=== PATIENT | female | born 1970 | race Caucasian/White ===

== ENCOUNTER → 2019-02-04 | Outpatient (CLI) | payer MEDICARE, MEDICAID, SELFPAY ==
[2019-02-04 12:50] VITALS: BMI 27.3
--- NOTE | 2019-02-04 12:58 | RAD_ITS ---
STUDY: X-RAY - LEFT RADIUS AND ULNA REASON FOR EXAM: Injury a couple months ago. TECHNIQUE: 2 view(s) of the forearm. COMPARISON: None. FINDINGS: There is no demonstrated soft tissue swelling. Normal visualized radius. There is a nondisplaced fracture of the ulnar diaphysis without solid osseous bridging. RAD/Forearm 2 Views IMPRESSION: Fracture of the ulnar diaphysis without solid osseous bridging. Electronically Signed: Alexx Caruso MD at 15:22 EDT Tel , Service support ,
== END | disposition home or self-care (01) ==
LOC: HPRAD 12:57
PROVIDERS: Family Provider Family Medicine; PCP Family Medicine; Referring Provider Orthopaedic Surgery; Visit Provider Orthopaedic Surgery
DX: S52.209A Unspecified fracture of shaft of unspecified ulna, initial encounter for closed fracture (principal)
CPT/HCPCS: 73090

== ENCOUNTER 2020-03-12 17:38 | Emergency (ER) | payer MEDICARE, MEDICAID, SELFPAY ==
[2019-02-04 12:50] VITALS: BMI 27.3
[2020-03-12 17:39] VITALS: BP 103/56; PULSE 130; RESP 20; TEMP 36.1; O2SAT 98; BMI 22.8
--- NOTE | 2020-03-12 17:51 | EKG12_ITS ---
Test Reason : MEDICAL CLEARANCE Blood Pressure : / mmHG Vent. Rate : 106 BPM Atrial Rate : 106 BPM P-R Int : 126 ms QRS Dur : 070 ms QT Int : 322 ms P-R-T Axes : 074 044 059 degrees QTc Int : 427 ms Sinus tachycardia Otherwise normal ECG Confirmed by MITCHEL BATES, YULI ([id number]), fan mail editor ZOYA DURAN ([id number]) on 03/14/2020 9:20:27 AM Referred By: ARMANDO Confirmed By:YULI GRULLON MD
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
[2020-03-12 18:28] LABS: Absolute Lymphocyte Count 3.43 X10^3/uL (0.83-4.51); Absolute Neutrophil Count 6.4 X10^3/uL (2.0-7.7); Basophil# 0.07 X10^3/uL; Basophil% 0.7 % (0-1); Eosinophil# 0.04 X10^3/uL; Eosinophils% 0.4 % (0-5); Hematocrit 43.9 % (37-47); Hemoglobin 14.2 g/dL (12.0-15.0); Lymphocyte # 3.43 X10^3/ul (4.0); Lymphocyte % 32.5 % (19-41); Mean Corp Hgb Conc 32.3 g/dL (32-36); Mean Corpuscular Hgb 28.8 pg (27.0-32.0); Monocyte# 0.61 X10^3/uL; Monocyte% 5.8 % (0-10); NRBC Flagged by Analyzer 0 % (0-5); Neutrophil # 6.39 X10^3/uL (2.7-7.7); Neutrophil % 60.3 % (47-70); Platelet Count 468 K/mm3 (150-450); RBC Distribution Width CV 14.6 % (11.6-14.6); RBC Distribution Width SD 47.5 fl (35.1-43.9); Red Blood Count 4.93 M/mm3 (4.2-5.4); White Blood Count 10.6 K/mm3 (4.4-11.0)
[2020-03-12 18:32] LABS: Anion Gap 9 (5-15); BUN 9 mg/dL (7-18); BUN/Creat Ratio 7.7 RATIO (10-20); Calcium,Total 9.8 mg/dL (8.5-10.1); Chloride 104 mmol/L (98-107); Creatinine, Serum 1.17 mg/dL (0.55-1.02); EST Glomerular Filtration Rate 52 mL/min (>60); Est Glom Filt Rate - Afr Amer 63 mL/min (>60); Estimated Creatinine Clearance 57.38 ml/min; Glucose 111 mg/dL (74-106); Potassium 3.2 mmol/L (3.5-5.1); Sodium Level 137 mmol/L (136-145)
[2020-03-12 18:39] LABS: Internal QC Validated? YES +Cl - CLEAR BKGD; Pregnancy, Serum, hCG Quali. NEGATIVE Negative
[2020-03-12] MEDS: LORazepam 1 MG Tablet PO ×2 (18:40→22:30)
--- NOTE | 2020-03-12 18:41 | ED.RN ---
pt attempted to give ua x 2. no success. water given
[2020-03-12 19:12] LABS: Alcohol, Blood (Medical)-Serum < 3.0 mg/dL
[2020-03-12 19:23] VITALS: RESP 17
[2020-03-12 20:04] LABS: Amphetamine Urine VISTA NEGATIVE (<1000 ng/mL); Barbiturate Urine VISTA NEGATIVE (< 200 ng/mL); Benzodiazepine Urine VISTA NEGATIVE (< 200 ng/mL); Cocaine Urine VISTA NEGATIVE (< 300 ng/mL); Ecstacy Urine VISTA NEGATIVE (< 500 ng/mL); Methadone Urine VISTA NEGATIVE (< 300 ng/mL); PCP Urine VISTA NEGATIVE (< 25 ng/mL); THC Urine VISTA NEGATIVE (< 50 ng/mL); Vista UDS pH Range 6
--- NOTE | 2020-03-12 20:22 | ED.RN ---
[facility]ISIS CALLED AND MADE AWARE OF PATIENT
[2020-03-12 20:35] VITALS: RESP 18
[2020-03-12 21:20] VITALS: BP 110/60; PULSE 98; RESP 18; O2SAT 96
[2020-03-12] MEDS: Ibuprofen 600 MG Tablet PO (22:30)
[2020-03-12] MEDS: QUEtiapine 100 MG Tablet 300 MG PO (22:30)
[2020-03-12 22:32] VITALS: RESP 18
[2020-03-12 23:39] VITALS: RESP 16
[2020-03-13] MEDS: DiphenhydrAMINE 25 MG Capsule 50 MG PO (00:49)
[2020-03-13 01:15] VITALS: BP 136/84; PULSE 100; RESP 18; O2SAT 96
[2020-03-13 02:16] VITALS: RESP 18
[2020-03-13 04:15] VITALS: RESP 14
[2020-03-13 06:03] VITALS: BP 126/80; PULSE 72; RESP 16; O2SAT 98
[2020-03-13] MEDS: Sertraline 100 MG Tablet PO (08:31)
[2020-03-13] MEDS: clonazePAM 0.5 MG Tablet PO (08:31)
[2020-03-13] MEDS: Ibuprofen 600 MG Tablet PO (08:31)
[2020-03-13] MEDS: QUEtiapine 100 MG Tablet 150 MG PO (08:32)
[2020-03-13 11:53] VITALS: BP 126/80; PULSE 72; RESP 16; O2SAT 99
== END 2020-03-13 10:55 ==
LOC: ED 18:35
PROVIDERS: Emergency Provider Emergency Medicine; PCP Family Medicine
DX: R45.851 Suicidal ideations (principal); F17.200 Nicotine dependence, unspecified, uncomplicated; F32.9 Major depressive disorder, single episode, unspecified; F41.9 Anxiety disorder, unspecified; Z91.5 Personal history of self-harm; Z90.710 Acquired absence of both cervix and uterus; Z79.899 Other long term (current) drug therapy
CPT/HCPCS: 80048; 80307; 80320; 84703; 85025; 87426; 93005; 99285; G0480

== ENCOUNTER 2020-07-01 20:45 | Emergency (ER) | payer MEDICARE, MEDICAID, SELFPAY ==
--- NOTE | 2020-07-01 00:30 | RAD_ITS ---
STUDY: X-RAY CHEST REASON FOR EXAM: Female, 49 years old. Respiratory arrest, rales left base TECHNIQUE: Single AP portable view of the chest. COMPARISON: None. FINDINGS: There is some asymmetry of the lung rutherford due to S-shaped thoracic scoliosis. There is mild atelectasis in the lower lung rutherford bilaterally, left greater than right.. There is no demonstrated acute pulmonary infiltrate.. There is no demonstrated pleural abnormality. Normal size heart. Normal mediastinum and merritt. Normal visualized aortic arch and descending thoracic aorta. There are no demonstrated acute fractures or destructive bone lesions. There is no demonstrated abnormality of the visualized soft tissue structures of the upper abdomen. RAD/Chest 1 View (Portable) IMPRESSION: There are no visualized acute osseous abnormalities. Electronically Signed: Miller Nicholson MD at 2:11 EDT , Service support ,
[2020-07-01 20:47] VITALS: BP 159/119; PULSE 113; RESP 22; TEMP 36.3; O2SAT 95; BMI 25.6
--- NOTE | 2020-07-01 21:01 | EKG12_ITS ---
Test Reason : OVERDOSE Blood Pressure : / mmHG Vent. Rate : 101 BPM Atrial Rate : 101 BPM P-R Int : 128 ms QRS Dur : 078 ms QT Int : 356 ms P-R-T Axes : 070 031 044 degrees QTc Int : 461 ms Sinus tachycardia Otherwise normal ECG Confirmed by MITCHEL BATES, YULI ([id number]), business editor ZOYA DURAN ([id number]) on 07/04/2020 8:58:54 AM Referred By: KAM Confirmed By:YULI GRULLON MD
[2020-07-01] MEDS: Midazolam 2 MG/2 ML Syringe IV (21:37)
[2020-07-01 21:49] VITALS: BP 120/79; PULSE 109; RESP 22; O2SAT 95
--- NOTE | 2020-07-01 21:51 | ED.DCSUM_ITS ---
History of Present Illness Chief Complaint: Overdose Detail of Chief Complaint: Overdose and attempt to commit suicide Informant: Patient, - - Law enforcement Onset: Today - Today took unknown amount of heroin and attempt to kill herself. Patient had a respiratory arrest and required 2 doses of Narcan. Context: Sudden Onset Timing: Intermittent Quality: Respiratory arrest due to opiate overdose Location: Residence Current Severity: Patient is depressed, reports son 2 months ago and feels miserable and Worsened by: Difficult family situation and recent of son Relieved by: Nothing Associated Symptoms: Respiratory arrest due to heroin overdose, intentional Narrative: Patient is a middle-age woman who presents because she is depressed, feels miserable and no longer wants to live. She denied taking heroin. The police district switchboard operator informed me that friend called because she had respiratory arrest. He found the heroin she took. She still denies using heroin. 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 Patient is presently crying. She states she is depressed. She feels miserable and no longer wants to feel the pain in agony. Prior similar symptoms: Yes Recent Illness/Hospitalization: Yes - Past Medical History (1) Anxiety Status: Chronic (2) Chronic low back pain Status: Chronic (3) Depression Status: Chronic (4) Hypertension Status: Chronic (5) Tobacco abuse Status: Chronic Past Medical History - Allergies and Home Meds Allergies/Adverse Reactions: Allergies venom-honey bee [bee venom (honey bee)] Allergy (Verified 07/01/20 20:55) Unknown Primary Care Physician: Darian Guzman MD [Primary Care Provider] - Prior records reviewed: Yes Surgical History: hysterectomy, - - Breast implant removal, Lives: Alone Smoking Status: Current every day smoker Alcohol: None - Unknown Drugs: Heroin - Family History Maternal Family History: Reports: Hypertension Paternal Family History: Reports: Cancer Sibling Family History: Reports: Cancer Review of Systems ROS: Unable to Obtain - Evident due to depression, agitation, uncooperative and not forthcoming Cardiovascular: Denies: Chest pain Respiratory: Denies: Dyspnea Gastrointestinal: Denies: Vomiting, Diarrhea Genitourinary: Denies: Dysuria, Hematuria, Frequency Musculoskeletal: Reports: Back pain - Chronic back pain. Denies: Myalgias, Arthralgias, Swelling, Extremity Pain Neurological: Reports: Weakness Psych: Reports: Depression, Suicidal thoughts Allergy: Denies: Uticaria, Swelling of the mouth Physical Exam Vital Signs/Narrative: Vital Signs Temp Pulse Resp BP Pulse Ox 07/01/20 21:49 109 H 22 H 120/79 95 07/01/20 20:47 97.4 F L 113 H 22 H 159/119 H 95 Inital Vital Signs reviewed: Yes General: Well nourished, Well developed, Acute Distress Head: Normocephalic, Atraumatic Eyes: Perrl, EOMI. Negative for: Pale conjunctiva, Scleral icterus ENT: Moist mucous membranes, No rhinorrhea, TM's clear Neck: Supple, Nontender, No lymphadenopathy, No JVD, - - Trachea is midline. Cardiovascular: Regular rhythm, No murmurs, Normal S1, Normal S2, Tachycardia Respiratory: No distress Abdomen: Soft, Nontender, Nondistended, Normal bowel sounds, No masses Rectal: Deferred Back: Nontender, Normal Inspection Extremities: Nontender, No edema Skin: Normal color, No rash, No Trauma. Negative for: Cyanosis, Diaphoresis, Jaundice Neurological: Alert, Oriented x3, Cranial nerves II-XII grossly intact, Normal Strength, Normal Sensation, Normal DTR Psychological: Depressed, Tearful, - - Reports she is in agony and does not wish to live. Diagnostic/Tx/Re-eval 07/01/20 21:01 Chest 1 View (Portable) [RAD] Stat - EKG Initial EKG Interpretation: Sinus Tachycardia - Tachycardia with a ventricular rate of 101. TN interval 220 ms. Screw duration 78 ms. QT duration 3 to 56 ms. Callahan is normal. - Medical Decision Making Patient was placed on a monitor will observe since she had a respiratory arrest due to heroin overdose and attempt to commit suicide. Appropriate screening labs were obtained to rule out metabolic abnormality or other causes. environmental services worker was made aware of patient. Patient was pink slipped by law enforcement. Patient was attempting to leave. She was uncooperative. Patient was not redirectable. She did not listen to me, nurse or law enforcement. With minimal physical effort she was placed back in bed. She became combative at this point. She was placed in restraints and medicated with Versed to allow the nurse to draw blood work and perform appropriate test for medical clearance. Patient felt it was inappropriate for her to be placed in restraints. She then made comment I am not going to say anything more. Laboratory results are pending. Covid test is pending. Case was turned over to the evening physician to review labs. If there is no abnormality crisis to see for inpatient psychiatric care. Labs to be checked by night physician since results are still pending. - Critical Care Time Critical care time (excluding procedures): 30-74 minutes - , Discussion with law enforcement and licensed optical dispenser on-call for counseling center to facilitate placement at psychiatric facility.Critical care time 31 minutes which included obtaining history, physical exam, direct patient ED Disposition - Plan for ED Patient: Disposition: Psychiatric Hospital or Unit Diagnosis: Depression with suicidal ideation, Suicide attempt by adequate means, Respiratory arrest, Intentional heroin overdose Referrals: Darian Guzman MD [Primary Care Provider] -
--- NOTE | 2020-07-01 22:22 | ED.RN ---
[facility]ISIS CALLED AND ASKED IF WE HAD ANY LABS ON THE PATIENT YET, I CALLED BACK AND LET THEM KNOW PATIENT WOULD NOT GIVE ANY LABS.
[2020-07-01 23:19] VITALS: RESP 18
[2020-07-01 23:38] LABS: Anion Gap 9 (5-15); BUN 13 mg/dL (7-18); BUN/Creat Ratio 16.8 RATIO (10-20); Calcium,Total 8.5 mg/dL (8.5-10.1); Chloride 114 mmol/L (98-107); Creatinine, Serum 0.77 mg/dL (0.55-1.02); EST Glomerular Filtration Rate 83 mL/min (>60); Est Glom Filt Rate - Afr Amer 101 mL/min (>60); Estimated Creatinine Clearance 80.92 ml/min; Glucose 87 mg/dL (74-106); Potassium 3.8 mmol/L (3.5-5.1); Sodium Level 145 mmol/L (136-145)
[2020-07-01 23:41] LABS: Absolute Lymphocyte Count 2.79 X10^3/uL (0.83-4.51); Absolute Neutrophil Count 10.3 X10^3/uL (2.0-7.7); Basophil# 0.07 X10^3/uL; Basophil% 0.5 % (0-1); Eosinophil# 0.08 X10^3/uL; Eosinophils% 0.6 % (0-5); Hematocrit 41.8 % (37-47); Hemoglobin 13.3 g/dL (12.0-15.0); Lymphocyte # 2.79 X10^3/ul (4.0); Lymphocyte % 20.1 % (19-41); Mean Corp Hgb Conc 31.8 g/dL (32-36); Mean Corpuscular Hgb 28.3 pg (27.0-32.0); Mean Corpuscular Volume 88.9 fL (81-99); Mean Platelet Vol. 9.3 fl (6.2-12.0); Monocyte# 0.47 X10^3/uL; Monocyte% 3.4 % (0-10); NRBC Flagged by Analyzer 0 % (0-5); Neutrophil % 74.4 % (47-70); Platelet Count 380 K/mm3 (150-450); RBC Distribution Width CV 13.4 % (11.6-14.6); RBC Distribution Width SD 44.5 fl (35.1-43.9); White Blood Count 13.9 K/mm3 (4.4-11.0)
[2020-07-02] VITALS (10 sets, daily range): BP systolic 106–118; BP diastolic 64–89; PULSE 69–78; RESP 16–20; O2SAT 98–99
--- NOTE | 2020-07-02 00:26 | ED.RN ---
PT CONTINUES TO HAVE VERBAL OUTBURSTS AGAINST STAFF. PTS POC HAVE BEEN EXPLAINED MULTIPLE TIMES. HOWEVER, PT STILL STATES THAT SHE IS BEING HELD AGAINST HER WILL. PT HAS THREATENED THIS HOSPITAL AND ITS STAFF SAYING WHEN I GET OUT OF HERE I AM GOING TO FUCK YOU UP. PT CONTINUES TO TALK ABOUT EVENTS WITH HER SON AND HIS , EVENTS THAT THIS STAFF HAS NO CONTROL OVER. PT HAS BEEN ASKED MULTIPLE TIMES TO PROVIDE URINE SAMPLE, PT REFUSES. PT ALSO REFUSES TO HAVE A CHEST X-RAY. PT STATES SHE NORMALLY GOES TO BED AT 2200 AND DOESN'T UNDERSTAND WHY SHE IS STILL AWAKE. PT HAS NOT STOPPED TALKING TO SITTER SINCE HER ARRIVAL. PT HAS BEEN GIVEN WATER AND COKE AT HER REQUEST BUT STILL STATES SHE CANNOT PROVIDE URINE SAMPLE.
--- NOTE | 2020-07-02 01:07 | RAD_ITS ---
STUDY: X-RAY - LEFT RADIUS AND ULNA REASON FOR EXAM: Female, 49 years old. Pain TECHNIQUE: 2 view(s) of the forearm. COMPARISON: 02/04/2019. FINDINGS: There is no demonstrated soft tissue swelling. Normal visualized radius. There is an old fracture of the mid ulnar shaft. There is persistent large bone defect in the lateral aspect fracture site, however, there does appear to be bridging bone formation medially, consistent with interval healing. RAD/Forearm 2 Views IMPRESSION: Old healed fracture of the mid ulnar shaft, with a residual bone defect. No demonstrated acute fracture, dislocation, or destructive osseous lesion. Electronically Signed: Miller Nicholson MD at 2:46 EDT , Service support ,
[2020-07-02] MEDS: Ibuprofen 600 MG Tablet PO (01:21)
[2020-07-02] MEDS: QUEtiapine 100 MG Tablet 300 MG PO (01:21)
[2020-07-02] MEDS: clonazePAM 1 MG Tablet PO ×2 (01:21→06:21)
[2020-07-02 01:50] LABS: Amphetamine Urine VISTA NEGATIVE (<1000 ng/mL); Barbiturate Urine VISTA NEGATIVE (< 200 ng/mL); Benzodiazepine Urine VISTA POSITIVE (< 200 ng/mL); Cocaine Urine VISTA NEGATIVE (< 300 ng/mL); Ecstacy Urine VISTA NEGATIVE (< 500 ng/mL); Methadone Urine VISTA NEGATIVE (< 300 ng/mL); PCP Urine VISTA NEGATIVE (< 25 ng/mL); THC Urine VISTA NEGATIVE (< 50 ng/mL); Vista UDS pH Range 6
--- NOTE | 2020-07-02 02:31 | ED.RN ---
PT PRESENTED WITHOUT AN ARM BRACE ON LEFT ARM BUT STATES IT'S BEEN BROKEN FOR TWO YEARS.
--- NOTE | 2020-07-02 05:37 | ED.RN ---
[facility] REQUESTED TOX SCREEN WHICH WAS FAXED TO [phone].
--- NOTE | 2020-07-02 08:08 | ED.RN ---
ordered pt a meal
--- NOTE | 2020-07-02 10:19 | ED.RN ---
reports called to shanon melendez at [facility].
== END 2020-07-02 11:21 ==
PROVIDERS: Emergency Provider Emergency Medicine; PCP Family Medicine
DX: F32.9 Major depressive disorder, single episode, unspecified (principal); R45.851 Suicidal ideations; T40.1X2A Poisoning by heroin, intentional self-harm, initial encounter; R09.2 Respiratory arrest; F17.200 Nicotine dependence, unspecified, uncomplicated; Z90.710 Acquired absence of both cervix and uterus
CPT/HCPCS: 71045; 73090; 80048; 80307; 82077; 85025; 87426; 93005; 96374; 99285; A4216

== ENCOUNTER 2020-08-23 14:18 | Emergency (ER) | payer MEDICARE, MEDICAID, SELFPAY ==
[2020-08-23 14:19] VITALS: BP 123/89; PULSE 110; RESP 15; TEMP 36.3; O2SAT 100; BMI 23.6
--- NOTE | 2020-08-23 14:38 | EDS_ITS ---
HPI History of Present Illness HPI Narrative: Patient presents with injury to her right ring finger that occurred 2 weeks ago. Patient states she feels it may be starting to get infected. Patient states she went to an urgent care today and they referred her to the emergency department because they said it looks like it goes into the bone and would need to be debrided. Patient denies any fevers or chills. Patient admits to some drainage from the wound. Patient states her pain is worse with certain movements. Patient states the pain is sharp. Patient denies any paresthesias or weakness. Patient states she also cut her right middle finger and right small finger but they are healing without any complications. Patient states she has been using bacitracin ointment with minimal relief. Chief Complaint: Laceration Informant: patient Occured/Mechanism Mechanism/Context: Yes other see comment below Comment: Patient cut her finger with a knife. Onset/Context/Timing Onset: Weeks (2) Context: Gradual Onset Timing: Continuous Quality of Pain: Sharp Location: Dorsal aspect of the PIP joint of the right ring finger Worsened by: Movement Relieved by: Rest Associated Symptoms Associated Symptoms: Negative for Parasthesia and Weakness PFSH PFS Medical History Alcohol abuse Back pain Depression Substance abuse Suicidal ideation Home Medications quetiapine [Seroquel] 300 mg PO DAILY 10/27/15 [History Last Taken Unknown] clonazepam 1 mg PO BREAKFAST 03/12/20 [History Last Taken Unknown] sertraline 150 mg PO QHS 03/12/20 [History Last Taken Unknown] aripiprazole 10 mg PO QHS 07/02/20 [History Last Taken Unknown] clonazepam 2 mg PO QHS 07/02/20 [History Last Taken Unknown] mirtazapine 15 mg PO QHS 07/02/20 [History Last Taken Unknown] cephalexin 500 mg PO Q6 #40 capsule 08/23/20 [Rx Last Taken Unknown] hydroxyzine pamoate 50 mg PO BID PRN PRN 08/23/20 [History Last Taken Unknown] Allergy/AdvReac Type Severity Reaction Status Date / Time venom-honey bee Allergy Unknown Verified 08/23/20 14:18 [bee venom (honey bee)] Social History Smoking Status: Current every day smoker ROS ROS ED Constitutional Constitutional ED: Denies chills or fever(s) Eyes Eyes: Denies blurry vision or change in vision ENT ENT ED: Denies rhinorrhea or sore throat Cardiovascular Cardiovascular: Denies chest pain or palpitations Respiratory/Chest Respiratory/Chest: Denies cough or dyspnea Gastrointestinal Gastrointestinal: Reports nausea and vomiting Genitourinary Genitourinary ED: Denies dysuria or hematuria Musculoskeletal Musculoskeletal: Reports back pain and neck pain Integumentary Denies abscess or rash Neurologic Neurologic: Denies paresthesias or weakness Allergic/Immunologic Allergic/Immunologic ED: Denies mouth swelling or urticaria EXAM Physical Exam Const Vital Signs: 08/23/20 14:19 Temperature 97.4 F L Temperature Source Oral Pulse Rate 110 H Respiratory Rate 15 Blood Pressure 123/89 H Blood Pressure Mean 100 Pulse Ox 100 Oxygen Delivery Method Room Air Positive well nourished and well developed General Appearance ED: well developed HEENT Reports moist mucous membranes Extremity Extremity Narrative: There is an open wound over the dorsal aspect of the PIP joint of the right middle finger. There is some mild purulent drainage noted. There is some surrounding healing erythema. There is minimal tenderness. There is no bony crepitance, step-off, or deformity. Range of motion was limited and flexion of the PIP joint secondary to pain. Sensation was intact to light touch in all digits. Capillary refill was less than 2 seconds in all digits. There is no tenderness over the palmar aspect of the right ring finger. Neuro oriented x3, CN's II-XII intact bilaterally, no focal motor deficits and no sensory deficits noted Sensorium / Orientation: alert Psych mental status grossly normal MDM MDM MDM Narrative Medical decision making narrative: Patient was given a dose of Ancef here. CBC, sed rate, and CRP were obtained and were essentially within normal limits. X- rays of the right ring finger were obtained. There are 3 views. On my interpretation, there is no acute abnormality noted. There is no evidence of osteomyelitis. There is no fracture. Radiologist also interpreted the x-rays and agrees. Patient was given a prescription for Keflex. Patient was given a referral to the wound center as well as orthopedics for follow-up care. Xeroform gauze dressing was applied. Aluminum foam splint was applied. Patient understood and was agreeable with the plan. All questions were answered. Lab Data Attestation: I reviewed the patient's lab results. Discharge Plan Triage Chief Complaint: Laceration ED Provider: Ry Mccloud Dx/Rx/DC Orders Clinical Impression: Open wound of finger, infected Instructions: ED Wound Check (Infection) Prescriptions: New cephalexin [cephalexin] 500 MG capsule 500 mg PO Q6 Qty: 40 RF: 0 No Action quetiapine [Seroquel] 400 MG tablet 300 mg PO DAILY RF: 0 clonazepam 1 MG tablet 1 mg PO BREAKFAST RF: 0 sertraline 50 MG tablet 150 mg PO QHS RF: 0 clonazepam 2 MG tablet 2 mg PO QHS RF: 0 mirtazapine 15 MG tablet 15 mg PO QHS RF: 0 aripiprazole 10 MG tablet 10 mg PO QHS RF: 0 hydroxyzine pamoate 50 mg capsule 50 mg PO BID PRN PRN (Reason: Anxiety) RF: 0 Referrals: Douglas Vigil [Other] Qasim Garner DO [STAFF PHYSICIAN] - 5-7 Days Clinic,Wound [None] - 3-5 Days Disposition Disposition: Home, self care
[2020-08-23 15:24] LABS: Absolute Lymphocyte Count 3.08 X10^3/uL (0.83-4.51); Absolute Neutrophil Count 4.5 X10^3/uL (2.0-7.7); Basophil# 0.08 X10^3/uL; Eosinophil# 0.07 X10^3/uL; Eosinophils% 0.8 % (0-5); Hematocrit 42.9 % (37-47); Hemoglobin 13.5 g/dL (12.0-15.0); Lymphocyte # 3.08 X10^3/ul (0.83-4.51); Lymphocyte % 36.9 % (19-41); Mean Corp Hgb Conc 31.5 g/dL (32-36); Mean Corpuscular Hgb 27.5 pg (27.0-32.0); Mean Corpuscular Volume 87.4 fL (81-99); Mean Platelet Vol. 8.7 fl (6.2-12.0); Monocyte# 0.55 X10^3/uL; Monocyte% 6.6 % (0-10); NRBC Flagged by Analyzer 0 % (0-5); Neutrophil # 4.54 X10^3/uL (2.7-7.7); Neutrophil % 54.5 % (47-70); Platelet Count 581 K/mm3 (150-450); RBC Distribution Width CV 14.5 % (11.6-14.6); RBC Distribution Width SD 46.4 fl (35.1-43.9); Red Blood Count 4.91 M/mm3 (4.2-5.4); White Blood Count 8.3 K/mm3 (4.4-11.0)
[2020-08-23] MEDS: Cefazolin 1 GM/50 ML BAG IV (15:28)
[2020-08-23 15:29] LABS: Erythrocyte Sedimentation Rate 25 mm/hr (0-30)
[2020-08-23] MEDS: Ibuprofen 600 MG Tablet PO (15:41)
[2020-08-23] MEDS: Diphth,Pertuss(Acell),Tet Vac 0.5 ML Vial IM (15:49)
--- NOTE | 2020-08-23 15:55 | RAD_ITS ---
STUDY: X-RAY - RIGHT HAND, ATTENTION 4 FINGER REASON FOR EXAM: Female, 49 years old. Injury/Pain TECHNIQUE: 3 view(s) of the finger were obtained. COMPARISON: None. FINDINGS: Normal metacarpal head. Normal metacarpophalangeal joint. Normal proximal phalanx. Normal middle phalanx. Normal distal phalanx. Normal proximal interphalangeal joint. Normal distal interphalangeal joint. There is no demonstrated fracture. RAD/Finger(s) Min 2 Views IMPRESSION: No definite acute or significant abnormality seen. Electronically Signed: Michel Abreu MD at 16:13 EDT , Service support ,
[2020-08-23 16:31] LABS: M R Staph aureus DNA By PCR Negative (Negative); Probe Check PASS; Staph aureus DNA By PCR POSITIVE (Negative)
== END 2020-08-23 16:50 | disposition home or self-care (01) ==
PROVIDERS: Emergency Provider Emergency Medicine
DX: S61.212A Laceration without foreign body of right middle finger without damage to nail, initial encounter (principal); L08.9 Local infection of the skin and subcutaneous tissue, unspecified; W26.0XXA Contact with knife, initial encounter; Y93.9 Activity, unspecified; Y92.9 Unspecified place or not applicable; F32.9 Major depressive disorder, single episode, unspecified; Z79.899 Other long term (current) drug therapy; F17.200 Nicotine dependence, unspecified, uncomplicated
CPT/HCPCS: 73140; 85025; 85652; 86140; 87070; 87077; 87186; 87205; 87640; 90715; 96365; 96372; 99284; A4216

== ENCOUNTER 2020-09-06 09:04 | Outpatient (RCR) | payer MEDICARE, MEDICAID, SELFPAY ==
[2020-09-06 09:20] VITALS: BP 121/70; PULSE 124; RESP 18; TEMP 37.4; BMI 21.7
--- NOTE | 2020-09-06 09:33 | WC ---
DIFFICULT TO COMPLETE RISK ASSESSMENTS, PT VERY VERBAL, HARD TO REDIRECT.
--- NOTE | 2020-09-06 10:35 | PCM.WC.HP ---
History of Present Illness Date of Service: 09/06/20 Chief Complaint: Follow-up right ring finger History of Wound: 49-year-old white female with psych history on many psych meds, fell out of her shower approximately 3 weeks ago and caught her right ring finger on the shower frame. She developed an avulsion laceration to the top PIP joint of the right ring finger. Patient has been using pressurized saline and Neosporin to the wound. Has gone to the emergency room where they have done cultures and they put her on cephalexin that she has finished. Progress of Wound: Today the wound is open erythematous around the finger swollen finger joint able to flex finger well and has finished her antibiotic therapy. The culture shows staph that sensitive to doxycycline that she will be restarted on. The skin surrounding the wound has peeled back and was debrided she has some slough in the center that was scored and some new skin developing. We will start her on Santyl daily changes and follow her up in a week and start her on a new antibiotic. [facility] Medical History Alcohol abuse Back pain Depression Substance abuse Suicidal ideation Home Medications quetiapine [Seroquel] 300 mg PO DAILY 10/27/15 [History Last Taken Unknown] clonazepam 1 mg PO BREAKFAST 03/12/20 [History Last Taken Unknown] sertraline 150 mg PO QHS 03/12/20 [History Last Taken Unknown] aripiprazole 10 mg PO QHS 07/02/20 [History Last Taken Unknown] clonazepam 2 mg PO QHS 07/02/20 [History Last Taken Unknown] hydroxyzine pamoate 50 mg PO BID PRN PRN 08/23/20 [History Last Taken Unknown] Allergy/AdvReac Type Severity Reaction Status Date / Time venom-honey bee Allergy Unknown Verified 09/06/20 09:34 [bee venom (honey bee)] Social History Smoking Status: Current every day smoker ROS ROS Narrative Patient is concerned that she will lose her finger reassurance was given Constitutional Constitutional: Reports systems reviewed and no addt'l complaints, except as documented Eyes Eyes: Reports systems reviewed and no addt'l complaints, except as documented ENT HEENT: Reports systems reviewed and no addt'l complaints, except as documented Cardiovascular Cardiovascular: Reports systems reviewed and no addt'l complaints, except as documented Respiratory/Chest Respiratory/Chest: Reports systems reviewed and no addt'l complaints, except as documented Gastrointestinal Gastrointestinal: Reports systems reviewed and no addt'l complaints, except as documented Genitourinary Genitourinary: Reports systems reviewed and no addt'l complaints, except as documented Musculoskeletal Musculoskeletal: Reports systems reviewed and no addt'l complaints, except as documented Integumentary Integumentary: Reports systems reviewed and no addt'l complaints, except as documented, as per HPI, non-healing lesions, skin swelling and wounds Neurologic Neurologic: Reports systems reviewed and no addt'l complaints, except as documented Psychiatric Psychiatric: Reports systems reviewed and no addt'l complaints, except as documented Endocrine Endocrinology: Reports systems reviewed and no addt'l complaints, except as documented Hematologic/Lymphatic Hematologic/Lymphatic: Reports systems reviewed and no addt'l complaints, except as documented Allergic/Immunologic Allergic/Immunologic: Reports systems reviewed and no addt'l complaints, except as documented Vital Signs Vital Signs Vital Signs: 09/06/20 09:20 Temperature 99.3 F H Temperature Source Temporal Pulse Rate 124 H Respiratory Rate 18 Blood Pressure 121/70 H Blood Pressure Mean 87 Blood Pressure Source Monitor Blood Pressure Position Sitting Blood Pressure Location Left Arm Oxygen Delivery Method Room Air Weight Weight: 143 lb Body Mass Index (BMI) 21.7 Physical Exam Const oriented x3 General Appearance: cooperative Exam Limitations: no limitations Resp normal respiratory effort Effort and Inspection: able to speak in complete sentences Auscultation: clear to auscultation bilaterally Cardio regular rate and regular rhythm Palpation: normal PMI Rate: regular rate Rhythm: regular rhythm GI Auscultation: normoactive bowel sounds Palpation: soft and no hepatosplenomegaly external exam normal Back/Spine Cervical Spine: cervical ROM normal Thoracic Spine / Upper Back: normal to inspection Lumbar Spine / Lower Back: normal to inspection Extremity normal to inspection General Extremity: normal exam except as noted Skin Trauma: laceration avulsion Wounds: wounds noted Neuro oriented x3 Psych Appearance: grossly normal Speech: normal speech Thought Content: normal thought content Judgement: judgement good Debridement Note Debridement Note Post-Debridement Measurements and Additional Note: Post-Debridement Measurements/Treatment WC - Nurse 1 - General Ulcer Assessment Start: 09/06/20 08:24 Freq: Status: Active Protocol: DESHAWN.LOWGAYLE Activity Type Activity Date Activity User E-Sign Co-Sign Detail Recorded Client Recorded Date Recorded By Document 09/06/20 09:20 [facility] [id number] 09/06/20 09:32 [facility] 09/06/20 09:20 - Today's Visit Information Type of service 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 ) Arrival Mode Ambulatory Transfer Assistance None Patient Identification Verified (Name & Yes ) Patient Requires Transmission-Based No Precautions Height and Weight Height 5 ft 8 in Weight 143 lb Weight in Pounds 143.0 lbs Weight Measurement Method Stated by Patient Body Mass Index (BMI) 21.7 BMI Classification Normal BSA - Aretha 1.77 Vital Signs Temperature (97.8 F-99.1 F) 99.3 F H Temperature Source Temporal Pulse Rate (60-100) 124 H Pulse Location Monitor Respiratory Rate (12-18) 18 Respiratory rate source Observation Oxygen Delivery Method Room Air Blood Pressure (90/60-120/80) 121/70 H Blood Pressure Mean (mm Hg) 87 Source Monitor Position Sitting Blood Pressure Location Left Arm History Since Last Visit- (Skip if this is Patient's initial visit) Left Footwear Regular Shoe Right Footwear Regular Shoe Pain Scale: 0-10 Numeric Is Patient Pain Free? Yes Communication Assessment Preferred language Malay Multicultural Services Librarian Required No Able to Read Yes Able to Write Yes Communication Tools None Right Hearing Abillity Normal Left Hearing Abillity Normal Visual Assistive Devices None Teaching Assessment Preferences Verbal,Written, Audio/Visual, Demonstration Barriers to Learning None Readiness To Learn Excellent Willingness to Engage in Self Management High Activies Readiness to Engage in Self Management High Activities Anxiety Level Calm Cooperation Cooperative Perception Coherent Interest in Health Problem Asks Questions Education Importance Acknowledges Need Does Patient Smoke tobacco or other No substances Smoking Status Current every day smoker Is Patient Diabetic Yes Functional Assessment Recent Decline in Ability to Perform Denies Any Declines Culture/Shinto/[employer] Employee Cultural/Shinto Needs that may affect No Treatment Plan Teaching: Wound Center *Welcome to the Wound Center -Person Taught Patient -Teaching Method Discussion -Response to teaching Verbalize understanding Welcome to the Wound Care Center English HESS - Nurse 1 - General Ulcer Measurement Start: 09/06/20 08:24 Freq: Status: Active Protocol: Activity Type Activity Date Activity User E-Sign Co-Sign Detail Recorded Client Recorded Date Recorded By Document 09/06/20 09:20 [facility] [id number] 09/06/20 09:32 [facility] 09/06/20 09:20 Wound Center Nurse 1 #1- R RING FINGER -Combined with other wound No -Current Size (cm) - Length 1.3 -Current Size (cm) - Width 1.7 -Current Size (cm) - Depth 0.2 -Total Square Cm 2.21 -Date of Last Picture (Recall this 09/06/20 field) -Photo Taken Yes -Epithelialization None Present -Tunneling No -Undermining/Tunneling No -Circular Undermining No -Exudate Amt Small -Exudate Type Serous -Wound Margin Distinct, Outline Attached -Granulation Amt None Present (0 %) -Slough/Fibrin Yes -Necrosis Amt Large (67-100%) -Necrotic Tissue Type Adherent Slough -Texture (Santa-wound Skin Appearance) Assessed, Localized Edema ,Scarring -Moisture (Santa-wound Skin Appearance) Assessed -Color (Santa-wound Skin Appearance) Assessed, Erythema -Temperature (Santa-wound Skin No Abnormality Appearance) (Pt Warm) -Tenderness on Palpation (Santa-wound Yes Skin Appearance) -Ulcer Cleansing Rinsed/ Irrigated with Saline -Foul Odor after Cleansing No -Anesthetic Used 5% Lidocaine Gel WC - Nurse 2 - General Ulcer CM Notes Start: 09/06/20 08:24 Freq: Status: Active Protocol: Activity Type Activity Date Activity User E-Sign Co-Sign Detail Recorded Client Recorded Date Recorded By Document 09/06/20 09:48 MW [id number] 09/06/20 09:55 MW 09/06/20 09:48 Wound Center Nurse 2 -Time 09:53 -Correct Patient Yes -Correct Side, Site, Position Yes -Correct Procedure Yes -Procedure Performed Yes -Type of Procedure Debridement -Clinical Debridement Subcutaneous -Tissue Removed Subcutaneous -Post Debridement (cm) - Length 1.5 -Post Debridement (cm) - Width 1.7 -Post Debridement (cm) - Depth 0.1 -Total Square (Post) (cm) 2.55 -Area of Debridement (cm) - Length 1.5 -Area of Debridement (cm) - Width 1.7 -Total Square (Area) (cm) 2.55 -Tunneling No -Undermining/Tunneling No -Circular Undermining No -Wound/Ulcer Outcome Not Healed -Ulcer Cleansing Rinsed/ Irrigated with Saline -Foul Odor after Cleansing No -Bioengineered Tissue No -Bleeding Controlled with Pressure -Offloading No -Treatment Response Procedure Tolerated Well -Debridement - Subq, 1st 20sq cm Yes Pain Scale: 0-10 Numeric Is Patient Pain Free? Yes - Nurse 3 - General Ulcer D/C NN Start: 09/06/20 08:24 Freq: Status: Active Protocol: Activity Type Activity Date Activity User E-Sign Co-Sign Detail Recorded Client Recorded Date Recorded By Document 09/06/20 10:02 HANG [id number] 09/06/20 10:03 HANG 09/06/20 10:02 Wound Care Nurse 3 #1- R RING FINGER -Ulcer Cleansing Rinsed/ Irrigated with Saline -Primary Dressing Applied C Hydrogel ($) -Primary Dressing Covered/Secured with Dry Gauze, Secured with Tape Pain Scale: 0-10 Numeric Is Patient Pain Free? Yes WC - Visit Discharge Discharge Condition Stable Ambulatory Status Ambulatory Transportation Private Auto Wound debrided: Right ring finger avulsion laceration Type of Debridement: Excisional debridement Anesthesia Used: 5% Lidocaine Gel Depth: Down to and including healthy tissue Percentage of wound debrided: 100 Instrument Used: 3mm curette Severity: Fat Layer Exposed Amount of bleeding with debridement: Mild Bleeding Controlled with: Pressure Patient tolerated procedure: Patient tolerated procedure well Lab / Micro Data Attestation: I reviewed the patient's lab results. Assessment/Plan Assessment/Plan (1) Swelling of right ring finger: CODE(S): M79.89 - Other specified soft tissue disorders PLAN: Start doxycycline 100 mg twice daily for 14 days (2) Nonhealing nonsurgical wound: CODE(S): T14.8XXA - Other injury of unspecified body region, initial encounter PLAN: Wash the right hand with antibacterial soap scrub ring finger well till bleeding Cover the wound with nickel thickness of Santyl cover with Adaptic gauze and tape Every day Follow-up in 1 week (3) Open wound of finger, infected: CODE(S): S61.209A - Unspecified open wound of unspecified finger without damage to nail, initial encounter; L08.9 - Local infection of the skin and subcutaneous tissue, unspecified QUALIFIERS: Encounter type: initial encounter Qualified Code(s): S61.209A - Unspecified open wound of unspecified finger without damage to nail, initial encounter; L08.9 - Local infection of the skin and subcutaneous tissue, unspecified
== END 2020-09-11 23:59 ==
LOC: WC 09:04
PROVIDERS: Visit Provider Nurse Practitioner
DX: S61.214A Laceration without foreign body of right ring finger without damage to nail, initial encounter (principal); L08.9 Local infection of the skin and subcutaneous tissue, unspecified; M79.89 Other specified soft tissue disorders; T14.8XXA Other injury of unspecified body region, initial encounter; F32.9 Major depressive disorder, single episode, unspecified; F17.200 Nicotine dependence, unspecified, uncomplicated
CPT/HCPCS: 11042; 99213; G0463